=== PATIENT | male | born 1955 | race African-American/Black ===

== ENCOUNTER 2017-01-29 10:16 | Emergency (ER) | payer OTHER ==
[2017-01-29 10:25] VITALS: BP 166/107
--- NOTE | 2017-01-29 11:42 | ER Document Report ---
ED General - General Chief Complaint: Leg Pain Stated Complaint: LEFT SIDE SHOULDER,LEG PAIN Time Seen by Provider: 01/29/17 11:19 Mode of Arrival: Ambulatory Information source: Patient Notes: 61-year-old male presents to ED for pain in his left lower back and down his left leg about a month progressively getting worse. States he is having difficulty sitting upright due to the pain. States he went to the PA last month and forgot to tell them that he had this new pain. He also has abscess to the posterior left upper back just medial to his shoulder which is causing him pain to his left shoulder and neck. He states it has been there for 2-3 week. He states he did not tell the PA doctor about this either when he was saw him last. This patient has a previous history of a stroke in the left side in 2011 high blood pressure high cholesterol. TRAVEL OUTSIDE OF THE [place] IN LAST 30 DAYS: No - HPI Onset: Other - A month or more Onset/Duration: Gradual, Persistent Quality of pain: Achy, Sharp, Throbbing Severity: Severe Pain Level: 5 Associated symptoms: Other - Left shoulder neck and arm pain left lower back and hip pain abscess to the left upper back just below the shoulder Exacerbated by: Sitting, Movement, Walking Relieved by: Denies Similar symptoms previously: Yes Recently seen / treated by doctor: Yes - Related Data Allergies/Adverse Reactions: No Known Allergies Allergy (Verified 01/29/17 10:22) Past Medical History - General Information source: Patient - Social History Smoking Status: Current Every Day Smoker Cigarette use (# per day): Yes - Smokes 2-3 cigars a day Chew tobacco use (# tins/day): No Smoking Education Provided: Yes - Less than 2 minutes Frequency of alcohol use: None Drug Abuse: None Occupation: None Lives with: Alone Family History: Arthritis, DM, Hyperlipidemia, Hypertension. denies: CAD, COPD , CVA, Malignancy, Thyroid Disfunction Patient has suicidal ideation: No Patient has homicidal ideation: No - Past Medical History Cardiac Medical History: Reports: Hx Hypercholesterolemia, Hx Hypertension Pulmonary Medical History: Reports: None Neurological Medical History: Reports: Hx Cerebrovascular Accident - 2012, Hx Seizures - childhood Renal/ Medical History: Reports: None Malignancy Medical History: Reports None GI Medical History: Reports: None Musculoskeltal Medical History: Reports Hx Arthritis, Reports Hx Muscle Weakness - Left Skin Medical History: Reports None Psychiatric Medical History: Reports: None Traumatic Medical History: Reports: None Infectious Medical History: Reports: None Surgical Hx: Negative Past Surgical History: Reports: None - Immunizations Hx Diphtheria, Pertussis, Tetanus Vaccination: Yes Review of Systems - Review of Systems Constitutional: No symptoms reported EENT: No symptoms reported Cardiovascular: No symptoms reported Respiratory: No symptoms reported Gastrointestinal: No symptoms reported Genitourinary: No symptoms reported Male Genitourinary: No symptoms reported Musculoskeletal: Back pain, Joint pain - Hip, Muscle pain, Other - Left shoulder and left side of neck pain due to abscess just below the left shoulder and upper back Skin: Other - Abscess left upper back Hematologic/Lymphatic: No symptoms reported Neurological/Psychological: No symptoms reported Physical Exam - Vital signs Vitals: Temp Pulse Resp BP Pulse Ox 98.3 F 73 20 166/107 H 99 01/29/17 10:23 01/29/17 10:23 01/29/17 10:23 01/29/17 10:23 01/29/17 10:23 Interpretation: Normal - General General appearance: Appears well, Alert - HEENT Head: Normocephalic, Atraumatic Eyes: Normal Pupils: PERRL - Respiratory Respiratory status: No respiratory distress Chest status: Nontender Breath sounds: Normal Chest palpation: Normal - Cardiovascular Rhythm: Regular Heart sounds: Normal auscultation Murmur: No - Abdominal Inspection: Normal Distension: No distension Bowel sounds: Normal Tenderness: Nontender Organomegaly: No organomegaly - Back Back: Normal, Tender - Left side or back. No: Deformity/step-off, CVA tenderness, Vertebra tenderness, Scars, Scoliosis, Wounds - Extremities General upper extremity: Normal inspection, Nontender, Normal color, Normal ROM , Normal temperature General lower extremity: Normal inspection, Normal color, Normal temperature, Normal weight bearing. No: Randi's sign Thigh: Tender. No: Dislocation - Neurological Neuro grossly intact: Yes Cognition: Normal Orientation: AAOx4 Bijan Coma Scale Eye Opening: Spontaneous Bijan Coma Scale Verbal: Oriented Dickey Coma Scale Motor: Obeys Commands Bijan Coma Scale Total: 15 Speech: Normal Motor strength normal: LUE, RUE, LLE, RLE Sensory: Normal - Psychological Associated symptoms: Normal affect, Normal mood - Skin Skin Temperature: Warm Skin Moisture: Dry Skin Color: Normal Skin irregularity: Abscess - Left upper back just below the left shoulder Course - Re-evaluation Re-evalutation: 01/29/17 13:59 Discussed x-rays with Dr. Frazier and patient. [facility]. He was also treated for an abscess to the upper left back which was I&D. Patient started on Bactrim and Keflex as well as given a [place] dispense pack for his discomfort. Patient to follow-up with PA concern is abscess and his blood pressure. - Vital Signs Vital signs: Temp Pulse Resp BP Pulse Ox 98.3 F 73 20 166/107 H 99 01/29/17 10:23 01/29/17 10:23 01/29/17 10:23 01/29/17 10:23 01/29/17 10:23 - Diagnostic Test Radiology reviewed: Image reviewed, Reports reviewed Procedures - Incision and Drainage Left Upper Back Type: Simple Anesthetic type: 1% Lidocaine mL's of anesthetic: 5 Blade size: 11 I&D procedure: Sterile dressing applied, Other - surgical scrub Incision Method: Incision made by scalpel Amount/type of drainage: Large amount of purulent drainage Discharge - Discharge Clinical Impression: abscess left upper back Degenerative disc disease Qualifiers: Spinal region: lumbar Qualified Code(s): M51.36 - Other intervertebral disc degeneration, lumbar region Low back pain Qualifiers: Chronicity: chronic Back pain laterality: left Sciatica presence: with sciatica Sciatica laterality: sciatica of left side Qualified Code(s): M54.42 - Lumbago with sciatica, left side; G89.29 - Other chronic pain Condition: Stable Disposition: HOME, SELF-CARE Additional Instructions: LOW BACK PAIN: Three out of every four people will have an episode of disabling back pain during their lifetime. Most commonly the pain is due to straining of the muscles and ligaments in the low back. Usual treatment includes: (1) Rest on a firm surface. Avoid lying on your stomach. (2) Ice pack the painful area. After a few days, gentle heat may be used intermittently to relax the area, or ice packs can be continued. (3) Medication may be needed -- muscle relaxers and antiinflammatory medicines are commonly used. (4) As the back improves, exercises are prescribed to strengthen the back and abdominal muscles. Your doctor will advise you on the proper care for your back at each stage in your recovery. You may be better in a few days -- or healing may take several weeks. If new symptoms of a "herniated disc" (radiation of pain, numbness, or tingling down the back of the leg or weakness in the leg) occur, you should be re-examined. Further testing may be necessary. CELLULITIS: You have an infection of your skin and underlying soft tissues called cellulitis. This is due to bacteria, which can enter through any break in the skin, or even through an irritated hair follicle. Untreated, cellulitis will usually worsen. Antibiotics are required. Usually, warm packs or warm soaks, and elevation of the infected area are recommended. You should start getting better within 24 to 36 hours. Most infections respond quickly to the right medication. Follow-up care is important, however, to check for abscess (boil) formation, unsuspected foreign body, or resistant infection. If you develop fever, chills, or if the area of infection is becoming rapidly more swollen or painful, call the doctor at once. Cephalexin The antibiotic you've been prescribed is a member of the cephalosporin class. This type of antibiotic covers a wide variety of infections, including those of the skin, lungs, and urinary tract. It's useful for staph infections. This antibiotic is slightly similar to the penicillin family. In rare cases , a person who is allergic to penicillin will also be allergic to this medication. If you have had a severe allergic reaction to penicillin, and have not taken this antibiotic since that time, notify your doctor. Antibiotics which cover many germs ("broad spectrum" antibiotics) are more likely to cause diarrhea or "yeast" infections. Women prone to vaginal yeast problems may suffer an attack after taking this antibiotic. In infants, oral thrush (white spots "stuck" on the cheek) or yeast diaper rash may result. See your doctor if these problems occur. Call at once if you develop itching, hives , shortness of breath, or lightheadedness. TRIMETHOPRIM-SULFA: You have been given a prescription for trimethoprim-sulfa (TMS, Septra, Bactrim). This is a combination antibiotic of the sulfa class, often used for urinary tract infections, middle ear infections, bronchitis, shigella intestinal infection, and Pneumocystis pneumonia. TMS is usually well-tolerated. Occasional side effects include nausea and decreased appetite. Septra is not recommended for infants less than two months of age. Do not take this medication if you have experienced severe side effects or allergy to sulfa medicine. You should stop this medicine at once and contact your physician if you develop any rash, joint pain, shortness of breath, bruising, or jaundice ( yellow color in the skin), or if you develop any other new or unusual symptoms. ORAL NARCOTIC MEDICATION: You have been given a prescription for pain control. This medication is a narcotic. It's best taken with food, as nausea can result if taken on an empty stomach. Don't operate machinery or drive within six hours of taking this medication. Do not combine this medicine with alcohol, or with any medication which can cause sedation (such as cold tablets or sleeping pills) unless you get permission from the physician. Narcotics tend to cause constipation. If possible, drink plenty of fluids and eat a diet high in fiber and fruits. Please be aware that prescription narcotics also have the potential for abuse. People become addicted to these medications because of the general sense of wellbeing that they induce. This feeling along with a significant reduction in tension, anxiety, and aggression provides a stimulating seductive quality to these drugs. Once your pain is under control, we encourage you to discard your unused narcotics. ICE PACKS: Apply ice packs frequently against the painful area. Many different schedules are recommended, such as "20 minutes on, 20 minutes off" or "one hour ice, two hours rest." If you need to work, you may need to go longer between ice treatments. You should plan to have the area ice packed AT LEAST one fourth of the time. The ice should be applied over the wrap, tape, or splint, or over a layer of cloth -- not directly against the skin. Some ice bags have a built-in cloth and can be put directly on the skin. WARM PACKS: After approximately two days, apply gentle heat (such as a heating pad or hot water bottle) for about 20 to 30 minutes about every two hours -- at least four times daily. Warmth and elevation will help you make a more rapid recovery , and will ease the pain considerably. Do not use HOT heat, and never apply heat for longer than 30 minutes. The continuous heat can invisibly damage skin and muscles -- even when no burn is seen on the surface. Damaged muscles can make you MORE sore. FOLLOW-UP CARE: If you have been referred to a physician for follow-up care, call the physician s office for an appointment as you were instructed or within the next two days. If you experience worsening or a significant change in your symptoms, notify the physician immediately or return to the Emergency Department at any time for re-evaluation. Please [facility] today to follow-up your chronic back pain, blood pressure, and your abscess. Prescriptions: Cephalexin Monohydrate [Keflex 500 mg Capsule] 500 mg PO QID #20 capsule Sulfamethoxazole/Trimethoprim [Septra-Ds 800-160 mg Tablet] 1 tab PO BID #14 tablet Forms: Elevated Blood Pressure, Smoking Cessation Education
--- NOTE | 2017-01-29 12:37 | RADIOLOGY REPORT (SQ) ---
EXAM DESCRIPTION: L SPINE WHOLE COMPLETED DATE/TIME: 01/29/2017 12:21 pm REASON FOR STUDY: pain left hip and back COMPARISON: None. NUMBER OF VIEWS: Five views including obliques. TECHNIQUE: AP, lateral, oblique, and sacral radiographic images acquired of the lumbar spine. LIMITATIONS: None. FINDINGS: MINERALIZATION: Normal. SEGMENTATION: L5 may represent a transitional vertebra. There is sacralization of L5. ALIGNMENT: There is grade 1 anterolisthesis of L4 on L5. VERTEBRAE: Maintained height. No fracture or worrisome bone lesion. DISCS: There is narrowing of the L4-5 and L5-S1 disc spaces. POSTERIOR ELEMENTS: Pedicles and facets are intact. No pars defect or posterior arch defects. Hyper trophic facet joints are present at L4-5 and L5-S1. HARDWARE: None in the spine. PARASPINAL SOFT TISSUES: Normal. PELVIS: Intact as visualized. No fractures or worrisome bone lesions. SI joints intact. OTHER: No other significant finding. IMPRESSION: 1. 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 2. There is grade 1 anterolisthesis of L4 on L5. 3. There are degenerative disc changes and facet arthropathy as described. TECHNICAL DOCUMENTATION: JOB ID: [id number] [employer]- All Rights Reserved
--- NOTE | 2017-01-29 12:38 | RADIOLOGY REPORT (SQ) ---
EXAM DESCRIPTION: HIP LEFT AP/LATERAL COMPLETED DATE/TIME: 01/29/2017 12:21 pm REASON FOR STUDY: pain left hip and back COMPARISON: None. NUMBER OF VIEWS: Two views. TECHNIQUE: AP pelvis and additional frog-leg view of the left hip. LIMITATIONS: None. FINDINGS: MINERALIZATION: Normal. LEFT HIP: No fracture or dislocation. No worrisome bone lesions. RIGHT HIP: No fracture or dislocation. No worrisome bone lesions. PUBIS AND ISCHIUM: No fracture. PELVIS: No fracture. SACRUM: No fracture or dislocation. No worrisome bone lesions. LOWER LUMBAR SPINE: Degenerative changes see the report for the lumbar spine series. SOFT TISSUES: No findings. OTHER: No other significant finding. IMPRESSION: Normal hip with lumbar degenerative changes. TECHNICAL DOCUMENTATION: JOB ID: [id number] [employer]- All Rights Reserved
[2017-01-29] MEDS ORDERED: HYDROCODONE/ACETAMINOPHEN 5-325 MG 6 TAB/DSPK PO PRN (13:20)
[2017-01-29] MEDS ORDERED: CEPHALEXIN 500 MG CAPSULE PO ONE (13:20)
[2017-01-29] MEDS ORDERED: SULFAMETHOXAZOLE/TRIMETHOPRIM 800-160 MG TABLET PO ONE (13:20)
== END 2017-01-29 14:25 | disposition home or self-care (01) ==
LOC: ER 10:16
PROC: 0H96XZZ Drainage of Back Skin, External Approach (ICD-10-PCS; principal; 2017-01-29)
DX: M51.16 Intervertebral disc disorders with radiculopathy, lumbar region (principal); L02.212 Cutaneous abscess of back [any part, except buttock and flank]; I10 Essential (primary) hypertension; F17.210 Nicotine dependence, cigarettes, uncomplicated; Z71.6 Tobacco abuse counseling; Z86.73 Personal history of transient ischemic attack (TIA), and cerebral infarction without residual deficits
CPT/HCPCS: 72110; 87070; 87075; 87077; 87205; 99284

== ENCOUNTER 2017-02-17 13:12 | Emergency (ER) | payer OTHER ==
--- NOTE | 2017-02-17 14:21 | ER Document Report ---
ED General - General Chief Complaint: Foot Injury Stated Complaint: FOOT INJURY Notes: P1-year-old man with multiple comorbidities and a left-sided stroke presents with pain on the dorsum of his left foot for 3 weeks since he slammed the door, worse with walking, radiating up his leg initially associated with swelling which is now resolved. He is taking nothing for the pain. TRAVEL OUTSIDE OF THE [place] IN LAST 30 DAYS: No - Related Data Allergies/Adverse Reactions: No Known Allergies Allergy (Verified 02/17/17 13:34) Past Medical History - General Information source: Patient - Reviewed - Social History Smoking Status: Former Smoker Family History: Arthritis, DM, Hyperlipidemia, Hypertension. denies: CAD, COPD , CVA, Malignancy, Thyroid Disfunction Patient has suicidal ideation: No Patient has homicidal ideation: No - Past Medical History Cardiac Medical History: Reports: Hx Hypercholesterolemia, Hx Hypertension Neurological Medical History: Reports: Hx Cerebrovascular Accident - 2012, Hx Seizures - childhood Renal/ Medical History: Denies: Hx Peritoneal Dialysis Musculoskeltal Medical History: Reports Hx Arthritis, Reports Hx Muscle Weakness - Left - Immunizations Hx Diphtheria, Pertussis, Tetanus Vaccination: Yes Review of Systems - Review of Systems Notes: REVIEW OF SYSTEMS GEN: Denies fever, chills, weight loss ENT: Denies sore throat, nasal discharge, ear pain EYES: Denies blurry vision, eye pain, discharge CV: Denies chest pain, palpitations, edema RESP: Denies cough, shortness of breath, wheezing GI: Denies abdominal pain, nausea, vomiting, diarrhea MSK: Denies joint pain/swelling, edema, dorsal foot pain SKIN: Denies rash, skin lesions LYMPH: Denies swollen glands/lymph nodes NEURO: D old stroke left-sided weakness PSYCH: Denies depression, suicidal or homicidal ideation PHYSICAL EXAMINATION General: No acute distress, well-nourished Head: Atraumatic, normocephalic ENT: Mouth normal, oropharynx moist, no exudates or tonsillar enlargement Eyes: Conjunctiva normal, pupils equal, lids normal Neck: No JVD, supple, no guarding CVS: Normal rate, regular rhythm, no murmurs Resp: No resp distress, equal and normal breath sounds bilaterally GI: Nondistended, soft, no tenderness to palpation, no rebound or guarding Ext: No deformities, no edema, normal range of motion in upper and lower ext. No swelling or ecchymosis of the foot with mild dorsal foot tenderness. Back: No CVA or midline TTP Skin: No rash, warm Lymphatic: No lymphadeopathy noted Neuro: Awake, alert. Face symmetric. GCS 15. Left-sided contractures and muscle wasting upper greater than lower extremity. Physical Exam - Vital signs Vitals: Temp Pulse Resp BP Pulse Ox 98.4 F 70 18 141/92 H 100 02/17/17 13:34 02/17/17 13:34 02/17/17 13:34 02/17/17 13:34 02/17/17 13:34 Course - Re-evaluation Re-evalutation: 02/17/17 14:20 Subacute foot pain after slamming a door. No apparent injury. Given patient's a diabetic with a stroke I will x-ray his foot to rule out fracture in a patient with abnormal sensorium. He will then be given anti-inflammatory medication and discharged home. - Vital Signs Vital signs: Temp Pulse Resp BP Pulse Ox 98.4 F 70 18 141/92 H 100 02/17/17 13:34 02/17/17 13:34 02/17/17 13:34 02/17/17 13:34 02/17/17 13:34 - Diagnostic Test Radiology reviewed: Pending, Image reviewed, Reports reviewed Discharge - Discharge Clinical Impression: Contusion of left foot Qualifiers: Encounter type: initial encounter Qualified Code(s): S90.32XA - Contusion of left foot, initial encounter Condition: Good Instructions: Contusion ([facility]) Prescriptions: Ibuprofen [Motrin 600 Mg Tablet] 600 mg PO TID #15 tablet
--- NOTE | 2017-02-17 14:46 | RADIOLOGY REPORT (SQ) ---
EXAM DESCRIPTION: FOOT LEFT COMPLETE COMPLETED DATE/TIME: 02/17/2017 2:35 pm REASON FOR STUDY: foot inj slammed in door COMPARISON: 2011. NUMBER OF VIEWS: Three views left foot. LIMITATIONS: None. FINDINGS: There is no acute or significant bone, joint or soft tissue abnormality. OTHER: Osteopenic. IMPRESSION: No fracture appreciated. TECHNICAL DOCUMENTATION: JOB ID: [id number]
[2017-02-17 15:37] VITALS: BP 153/86
== END 2017-02-17 15:36 | disposition home or self-care (01) ==
LOC: ER 13:12
DX: S90.32XA Contusion of left foot, initial encounter (principal); W23.0XXA Caught, crushed, jammed, or pinched between moving objects, initial encounter; E11.9 Type 2 diabetes mellitus without complications; I69.354 Hemiplegia and hemiparesis following cerebral infarction affecting left non-dominant side; I10 Essential (primary) hypertension
CPT/HCPCS: 99283

== ENCOUNTER 2017-02-23 11:47 | Emergency (ER) | payer MEDICARE, OTHER ==
[2017-02-23] MEDS ORDERED: KETOROLAC TROMETHAMINE 60 MG/2 ML SDV IM ONE (12:39)
--- NOTE | 2017-02-23 12:53 | ER Document Report ---
ED General - General Chief Complaint: Knee Pain Stated Complaint: KNOT ON LEFT KNEE Time Seen by Provider: 02/23/17 12:38 Mode of Arrival: Ambulatory Information source: Patient Notes: 61-year-old male presents with complaints of left knee pain and swelling. Patient denies any trauma, notes the swelling has worsened over the past few weeks. Patient denies any previous knee abnormalities, denies any fevers or chills TRAVEL OUTSIDE OF THE [place] IN LAST 30 DAYS: No - HPI Onset: Other - 2 weeks Onset/Duration: Persistent Quality of pain: Achy Severity: Mild Pain Level: 1 Associated symptoms: Body/muscle aches Exacerbated by: Movement, Walking Relieved by: Denies Similar symptoms previously: No Recently seen / treated by doctor: No - Related Data Allergies/Adverse Reactions: No Known Allergies Allergy (Verified 02/23/17 11:52) Past Medical History - Social History Smoking Status: Current Some Day Smoker Cigarette use (# per day): Yes Chew tobacco use (# tins/day): No Smoking Education Provided: No Frequency of alcohol use: None Drug Abuse: None Family History: Arthritis, DM, Hyperlipidemia, Hypertension. denies: CAD, COPD , CVA, Malignancy, Thyroid Disfunction - Past Medical History Cardiac Medical History: Reports: Hx Hypercholesterolemia, Hx Hypertension Neurological Medical History: Reports: Hx Cerebrovascular Accident - 2012, Hx Seizures - childhood Renal/ Medical History: Denies: Hx Peritoneal Dialysis Musculoskeltal Medical History: Reports Hx Arthritis, Reports Hx Muscle Weakness - Left - Immunizations Hx Diphtheria, Pertussis, Tetanus Vaccination: Yes Review of Systems - Review of Systems Notes: REVIEW OF SYSTEMS: CONSTITUTIONAL : Denies fever, chills, or sweats. Denies recent illness. EENT: Denies eye, ear, throat, or mouth pain or symptoms. Denies nasal or sinus congestion or discharge. Denies throat, tongue, or mouth swelling or difficulty swallowing. CARDIOVASCULAR: Denies chest pain. Denies palpitations or racing or irregular heart beat. Denies ankle edema. RESPIRATORY: Denies cough, cold, or chest congestion. Denies shortness of breath, difficulty breathing, or wheezing. GASTROINTESTINAL: Denies abdominal pain or distention. Denies nausea, vomiting , or diarrhea. Denies blood in vomitus, stools, or per rectum. Denies black, tarry stools. Denies constipation. GENITOURINARY: Denies difficulty urinating, painful urination, burning, frequency, blood in urine, or discharge. MUSCULOSKELETAL: Admits to left knee pain swelling SKIN: Denies rash, lesions or sores. HEMATOLOGIC : Denies easy bruising or bleeding. LYMPHATIC: Denies swollen, enlarged glands. NEUROLOGICAL: Denies confusion or altered mental status. Denies passing out or loss of consciousness. Denies dizziness or lightheadedness. Denies headache. Denies weakness or paralysis or loss of use of either side. Denies problems with gait or speech. Denies sensory loss, numbness, or tingling. Denies seizures. PSYCHIATRIC: Denies anxiety or stress. Denies depression, suicidal ideation, or homicidal ideation. ALL OTHER SYSTEMS REVIEWED AND NEGATIVE. Dictation was performed using [employer] voice recognition software PHYSICAL EXAMINATION: GENERAL: Well-appearing, well-nourished and in no acute distress. HEAD: Atraumatic, normocephalic. EYES: Pupils equal round and reactive to light, extraocular movements intact, sclera anicteric, conjunctiva are normal. ENT: Nares patent, oropharynx clear without exudates. Moist mucous membranes. NECK: Normal range of motion, supple without lymphadenopathy LUNGS: Breath sounds clear to auscultation bilaterally and equal. No wheezes rales or rhonchi. HEART: Regular rate and rhythm without murmurs ABDOMEN: Soft, nontender, nondistended abdomen. No guarding, no rebound. No masses appreciated. Musculoskeletal: left knee mild effusion noted, no bony tenderness NEUROLOGICAL: Cranial nerves grossly intact. Normal speech, normal gait. Normal sensory, motor exams PSYCH: Normal mood, normal affect. SKIN: Warm, Dry, normal turgor, no rashes or lesions noted. Physical Exam - Vital signs Vitals: Temp Pulse Resp BP Pulse Ox 98.5 F 65 16 174/92 H 100 02/23/17 11:53 02/23/17 11:53 02/23/17 11:53 02/23/17 11:53 02/23/17 11:53 Course - Re-evaluation Re-evalutation: 02/23/17 12:53 Patient will be given Jose wrap anti-inflammatories and follow-up with orthopedics otherwise looks well is in no distress I did offer the patient aspiration of the knee, explained risks and benefits and he wishes to defer at this time After performing a Medical Screening Examination, I estimate there is LOW risk for INTRACRANIAL HEMORRHAGE, UNSTABLE SPINE FRACTURE, CENTRAL CORD SYNDROME, CAUDA EQUINA, THORACIC AORTIC DISSECTION, PNEUMOTHORAX, PERFORATED BOWEL, RUPTURED ABDOMINAL AORTIC ANEURYSM, ACUTE TENDON RUPTURE, COMPARTMENT SYNDROME, or OPEN FRACTURE, thus I consider the discharge disposition reasonable. Also, there is no evidence or peritonitis, sepsis, or toxicity. I have reevaluated this patient multiple times and no significant life threatening changes are noted. The patient and I have discussed the diagnosis and risks, and we agree with discharging home to follow-up with their primary doctor with the understanding that symptoms and presentations can change. We also discussed returning to the Emergency Department immediately if new or worsening symptoms occur. We have discussed the symptoms which are most concerning (e.g., bloody stool, fever, changing or worsening pain, vomiting) that necessitate immediate return. - Vital Signs Vital signs: Temp Pulse Resp BP Pulse Ox 98.5 F 65 16 174/92 H 100 02/23/17 11:53 02/23/17 11:53 02/23/17 11:53 02/23/17 11:53 02/23/17 11:53 Discharge - Discharge Clinical Impression: Effusion, left knee Left knee pain Qualifiers: Chronicity: acute Qualified Code(s): M25.562 - Pain in left knee Hypertension Qualifiers: Hypertension type: essential hypertension Qualified Code(s): I10 - Essential ( primary) hypertension Condition: Stable Disposition: HOME, SELF-CARE Instructions: Suspected Internal Knee Injury ([facility]) Prescriptions: Naproxen 500 mg PO BID #20 tablet Referrals: CLAUDIO ACEVEDO MD [ACTIVE STAFF] - Follow up in 1 week
[2017-02-23 13:14] VITALS: BP 185/101
== END 2017-02-23 13:23 | disposition home or self-care (01) ==
LOC: ER 11:47
DX: M25.462 Effusion, left knee (principal); M25.562 Pain in left knee; I10 Essential (primary) hypertension; M79.1 Myalgia; F17.210 Nicotine dependence, cigarettes, uncomplicated; E78.00 Pure hypercholesterolemia, unspecified; Z86.73 Personal history of transient ischemic attack (TIA), and cerebral infarction without residual deficits
CPT/HCPCS: 99283; 96372; J1885

== ENCOUNTER 2017-03-02 10:18 | Emergency (ER) | payer MEDICARE ==
[2017-03-02 10:26] VITALS: BP 161/96
[2017-03-02] MEDS ORDERED: KETOROLAC TROMETHAMINE 60 MG/2 ML SDV IM ONE (10:51)
--- NOTE | 2017-03-02 10:54 | ER Document Report ---
HPI - HPI Patient complains to provider of: left knee pain Onset: Other Onset/Duration: Gradual Quality of pain: Throbbing Severity: Severe Pain Level: 5 Context: Patient states he has been having left knee pain for almost 1 month. States he had some fluid in his knee and was seen here several days ago and nothing was done for him. The pain medication they gave him is not helping. He did not call Dr. Daigle's office for follow-up as instructed. Associated Symptoms: None Exacerbated by: Movement, Walking Relieved by: Denies Similar symptoms previously: Yes Recently seen / treated by doctor: Yes - ROS ROS below otherwise negative: Yes Systems Reviewed and Negative: Yes All other systems reviewed and negative - CONSTITUTIONAL Constitutional: DENIES: Fever - EENT EENT: DENIES: Congestion - NEURO Neurology: DENIES: Headache - CARDIOVASCULAR Cardiovascular: DENIES: Chest pain - RESPIRATORY Respiratory: DENIES: Trouble Breathing - GASTROINTESTINAL Gastrointestinal: DENIES: Abdominal Pain - MUSCULOSKELETAL Musculoskeletal: REPORTS: Extremity pain - left knee - DERM Skin Color: Normal Skin Problems: None Past Medical History - General Information source: Patient - Social History Smoking Status: Current Every Day Smoker Cigarette use (# per day): Yes Frequency of alcohol use: None Drug Abuse: None Lives with: Family Family History: Arthritis, DM, Hyperlipidemia, Hypertension - Past Medical History Cardiac Medical History: Reports: Hx Hypercholesterolemia, Hx Hypertension Neurological Medical History: Reports: Hx Cerebrovascular Accident - 2012, Hx Seizures - childhood Renal/ Medical History: Denies: Hx Peritoneal Dialysis Musculoskeltal Medical History: Reports Hx Arthritis, Reports Hx Muscle Weakness - Left Surgical Hx: Negative - Immunizations Hx Diphtheria, Pertussis, Tetanus Vaccination: Yes Vertical Provider Document - CONSTITUTIONAL Agree With Documented VS: Yes Exam Limitations: No Limitations General Appearance: WD/WN, No Apparent Distress - INFECTION CONTROL TRAVEL OUTSIDE OF THE [place] IN LAST 30 DAYS: No - HEENT HEENT: Atraumatic, Normocephalic - RESPIRATORY Respiratory: Breath Sounds Normal, No Respiratory Distress O2 Sat by Pulse Oximetry: 99 - CARDIOVASCULAR Cardiovascular: Regular Rate, Regular Rhythm - GI/ABDOMEN Gastrointestinal: Abdomen Soft - MUSCULOSKELETAL/EXTREMETIES Musculoskeletal/Extremeties: MAEW, Tender, No Edema - left knee - NEURO Level of Consciousness: Awake, Alert, Appropriate - DERM Integumentary: Warm, Dry Course - Re-evaluation Re-evalutation: 03/02/17 11:48 X-ray showed no acute abnormality, but there is subperiosteal new bone in the proximal fibula. Patient denies history of fracture. Patient is instructed to follow-up with Dr. Daigle for further evaluation of knee pain and x-ray results. 03/02/17 11:51 Patient states some relief of pain after the Toradol injection - Vital Signs Vital signs: Temp Pulse Resp BP Pulse Ox 98.9 F 62 18 161/96 H 99 03/02/17 10:22 03/02/17 10:22 03/02/17 10:22 03/02/17 10:22 03/02/17 10:22 Discharge - Discharge Clinical Impression: Left knee pain Qualifiers: Chronicity: acute Qualified Code(s): M25.562 - Pain in left knee Condition: Good Disposition: HOME, SELF-CARE Additional Instructions: Meds as prescribed Ice packs continue using your cane for walking. Call Dr. Daigle's office for follow-up appointment, he will be able to look at your x-rays from his office. Return as needed Prescriptions: Ketorolac Tromethamine [Toradol 10 mg Tablet] 10 mg PO Q6HP PRN #20 tablet PRN Reason: Referrals: CLAUDIO ACEVEDO MD [ACTIVE STAFF] - Follow up as needed
--- NOTE | 2017-03-02 11:21 | RADIOLOGY REPORT (SQ) ---
EXAM DESCRIPTION: KNEE LEFT 4 VIEW COMPLETED DATE/TIME: 03/02/2017 11:07 am REASON FOR STUDY: pain COMPARISON: None. NUMBER OF VIEWS: Four views. TECHNIQUE: AP, lateral, and both oblique radiographic images acquired of the left knee. LIMITATIONS: None. FINDINGS: MINERALIZATION: Osteopenia BONES: There is subperiosteal new bone in the proximal fibula. No acute fracture or dislocation is p resent. JOINT: No effusion. SOFT TISSUES: No soft tissue swelling. No radio-opaque foreign body. OTHER: No other significant finding. IMPRESSION: 1. There is no acute abnormality. 2. There is subperiosteal new bone in the proximal fibula. Is there history of fracture? Consider MRI for further evaluation if clinically indicated. TECHNICAL DOCUMENTATION: JOB ID: [id number] [employer]- All Rights Reserved
== END 2017-03-02 12:15 | disposition home or self-care (01) ==
LOC: ER 10:18
DX: M25.562 Pain in left knee (principal); F17.210 Nicotine dependence, cigarettes, uncomplicated; I10 Essential (primary) hypertension
CPT/HCPCS: 99283; 96372; 73562; J1885

== ENCOUNTER 2017-03-04 11:14 | Emergency (ER) | payer MEDICARE ==
[2017-03-04 11:20] VITALS: BP 180/61
--- NOTE | 2017-03-04 11:45 | ER Document Report ---
ED Extremity Problem, Lower - General Chief Complaint: Leg Pain Stated Complaint: LEFT LEG PAIN Time Seen by Provider: 03/04/17 11:31 Notes: Patient is a 61-year-old male who returns emergency department complaining of left knee pain. Patient states that he has had this pain for approximately 1 month. States he has been seen multiple times with department he states he has had nothing done for him. Patient states that he received Toradol last time and that helped with his pain otherwise he states he is due to follow-up with Dr. Daigle on . He denies any new trauma or fall. Pain described as aching pain with radiation down the front of his leg Review of his previous medical records showed that he has been offered a joint aspiration for the fluid in his knee but he declined. Otherwise he has had multiple imaging of his extremities without any evidence of acute fracture. Does show evidence of subperiosteal new bone in the proximal fibula. Patient denies history of fracture. Patient states that Last time he had anything for pain with his Toradol injection 2 days ago. Patient states that he has not been taking any [id number] medications nor did he fill the prescription that he received here previously. PMH; stroke with residual LUE weakness, HTN. PCP: Dr Toledo at the [facility] TRAVEL OUTSIDE OF THE [place] IN LAST 30 DAYS: No - Related Data Allergies/Adverse Reactions: No Known Allergies Allergy (Verified 03/04/17 11:19) Past Medical History - Social History Smoking Status: Unknown if Ever Smoked Family History: Arthritis, DM, Hyperlipidemia, Hypertension - Past Medical History Cardiac Medical History: Reports: Hx Hypercholesterolemia, Hx Hypertension Neurological Medical History: Reports: Hx Cerebrovascular Accident - 2012, Hx Seizures - childhood Renal/ Medical History: Denies: Hx Peritoneal Dialysis Musculoskeltal Medical History: Reports Hx Arthritis, Reports Hx Muscle Weakness - Left - Immunizations Hx Diphtheria, Pertussis, Tetanus Vaccination: Yes Review of Systems - Review of Systems Constitutional: No symptoms reported Musculoskeletal: See HPI Skin: No symptoms reported Neurological/Psychological: No symptoms reported -: Yes All other systems reviewed and negative Physical Exam - Vital signs Vitals: Temp Pulse Resp BP Pulse Ox 98.5 F 63 16 180/61 H 98 03/04/17 11:18 03/04/17 11:18 03/04/17 11:18 03/04/17 11:18 03/04/17 11:18 - General General appearance: Appears well, Alert In distress: None - Cardiovascular Pulses: Normal: Femoral, Popliteal, Dorsalis pedis Normal capillary refill: Yes - Extremities Hip: Normal, Nontender. No: Pain with ROM, Unable to bear weight Thigh: Normal, Nontender. No: Unable to bear weight Knee: Normal, Nontender, Pain with ROM. No: Deformity, Dislocation, Drawer's test instability, Joint effusion, Tender joint line, Unable to bear weight Calf: Normal, Nontender Ankle: Normal, Nontender. No: Edema Foot: Normal, Nontender. No: Abrasion, Deformity, Unable to bear weight - Neurological Neuro grossly intact: Yes Cognition: Normal Orientation: AAOx4 [place] Coma Scale Eye Opening: Spontaneous [place] Coma Scale Verbal: Oriented [place] Coma Scale Motor: Obeys Commands [place] Coma Scale Total: 15 Speech: Normal Motor strength normal: RUE, LLE, RLE - Skin Skin Temperature: Warm Skin Moisture: Dry Skin Color: Normal Skin Turgor: Elastic Course - Re-evaluation Re-evalutation: 03/04/17 13:09 Patient is a 61-year-old male who is hemodynamic stable, no acute distress and afebrile. Gait stable and able to bear weight without any difficulty. Patient has been seen multiple times for this chronic complaint. Patient educated on taking anti-inflammatories to help with his pain and to follow-up with Dr. Rosas on . Patient expressed understanding and agrees with plan. Given patient has no new injury or trauma no additional imaging was ordered. - Vital Signs Vital signs: Temp Pulse Resp BP Pulse Ox 98.5 F 63 16 180/61 H 98 03/04/17 11:18 03/04/17 11:18 03/04/17 11:18 03/04/17 11:18 03/04/17 11:18 Discharge - Discharge Clinical Impression: Left knee pain Qualifiers: Chronicity: acute Qualified Code(s): M25.562 - Pain in left knee Condition: Good Disposition: HOME, SELF-CARE Additional Instructions: Your complaint today is chronic and you will need to follow-up with Dr. Daigle in his office. Please use ice and heat as tolerated to help with your pain You can also buy capsaicin [id number] to help with your pain Please take your naproxen as prescribed. Prescriptions: Naproxen 500 mg PO BID #20 tablet Forms: Elevated Blood Pressure Referrals: CLAUDIO ACEVEDO MD [ACTIVE STAFF] - Follow up in 3-5 days
[2017-03-04] MEDS ORDERED: KETOROLAC TROMETHAMINE INJ/PF 30 MG/1 ML SDV IM ONE (11:46)
== END 2017-03-04 11:58 | disposition home or self-care (01) ==
LOC: ER 11:14
DX: M25.562 Pain in left knee (principal); I10 Essential (primary) hypertension
CPT/HCPCS: 99283; 96372; J1885

== ENCOUNTER 2017-08-16 13:46 | Emergency (ER) | payer MEDICARE ==
[2017-08-16] MEDS ORDERED: IBUPROFEN 600 MG TABLET PO ONE (15:50)
[2017-08-16] MEDS ORDERED: ACETAMINOPHEN 325 MG TABLET PO ONE (15:50)
--- NOTE | 2017-08-16 15:52 | ER Document Report ---
ED Medical Screen (RME) - General Chief Complaint: Fall Stated Complaint: FALL/LEFT SIDE PAIN Time Seen by Provider: 08/16/17 15:50 Notes: Pt is a 62 yo male who tripped down stairs and landed on his left leg. He is complaining of left wood and thigh pain. Did not hit his head. 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 PE: Tenderness over left distal upper leg and mid-wood. No signs of trauma. I have greeted and performed a rapid initial assessment of this patient. A comprehensive ED assessment and evaluation of the patient, analysis of test results and completion of the medical decision making process will be conducted by additional ED providers. TRAVEL OUTSIDE OF THE [place] IN LAST 30 DAYS: No - Related Data Allergies/Adverse Reactions: No Known Allergies Allergy (Verified 08/16/17 13:47) Past Medical History - Social History Frequency of alcohol use: None Drug Abuse: None - Past Medical History Cardiac Medical History: Reports: Hx Hypercholesterolemia, Hx Hypertension Neurological Medical History: Reports: Hx Cerebrovascular Accident - 2012, Hx Seizures - childhood Renal/ Medical History: Denies: Hx Peritoneal Dialysis Musculoskeltal Medical History: Reports Hx Arthritis, Reports Hx Muscle Weakness - Left - Immunizations Hx Diphtheria, Pertussis, Tetanus Vaccination: Yes Physical Exam - Vital signs Vitals: Temp Pulse Resp BP Pulse Ox 98.4 F 82 14 161/99 H 97 08/16/17 14:07 08/16/17 14:07 08/16/17 14:07 08/16/17 14:07 08/16/17 14:07 Course - Vital Signs Vital signs: Temp Pulse Resp BP Pulse Ox 98.4 F 82 14 161/99 H 97 08/16/17 14:07 08/16/17 14:07 08/16/17 14:07 08/16/17 14:07 08/16/17 14:07
--- NOTE | 2017-08-16 16:42 | RADIOLOGY REPORT (SQ) ---
EXAM DESCRIPTION: TIBIA FIBULA LEFT COMPLETED DATE/TIME: 08/16/2017 4:19 pm REASON FOR STUDY: fall, leg pain COMPARISON: None. NUMBER OF VIEWS: Two views. TECHNIQUE: Two radiographic images acquired of the left tibia and fibula to include the knee and ank le in at least one projection. LIMITATIONS: None. FINDINGS: MINERALIZATION: Normal. BONES: No acute fracture or dislocation. No worrisome bone lesions. SOFT TISSUES: No obvious swelling or foreign body. OTHER: No other significant finding. IMPRESSION: NEGATIVE STUDY OF THE LEFT TIBIA AND FIBULA. NO RADIOGRAPHIC EVIDENCE OF ACUTE INJURY. TECHNICAL DOCUMENTATION: JOB ID: [id number] [employer]- All Rights Reserved
--- NOTE | 2017-08-16 16:44 | RADIOLOGY REPORT (SQ) ---
EXAM DESCRIPTION: FEMUR LEFT COMPLETED DATE/TIME: 08/16/2017 4:19 pm REASON FOR STUDY: fall, leg pain COMPARISON: None. NUMBER OF VIEWS: Two views. TECHNIQUE: Two radiographic images acquired of the left femur to include hip and knee in at least on e projection. LIMITATIONS: None. FINDINGS: MINERALIZATION: Normal. BONES: No acute fracture. No worrisome bone lesions. SOFT TISSUES: No obvious swelling or foreign body. OTHER: Patellar spurring is identified. IMPRESSION: NEGATIVE STUDY OF THE LEFT FEMUR. NO RADIOGRAPHIC EVIDENCE OF ACUTE INJURY. TECHNICAL DOCUMENTATION: JOB ID: [id number] [employer]- All Rights Reserved
--- NOTE | 2017-08-16 18:15 | ER Document Report ---
ED Extremity Problem, Lower - General Chief Complaint: Fall Stated Complaint: FALL/LEFT SIDE PAIN Time Seen by Provider: 08/16/17 15:50 Mode of Arrival: Wheelchair Information source: Patient Notes: 62-year-old male presents to ED for complaint of left leg pain from his hip to his foot. He states he has had this pain off and on for [address] Daigle for this pain who has had him on meloxicam and sending him to physical therapy. He states he fell down some steps a couple days ago but this is not a new pain this is the same pain that he has had for 4 months. There is no bruises no signs of any acute injuries to this leg. TRAVEL OUTSIDE OF THE [place] IN LAST 30 DAYS: No - HPI Patient complains to provider of: Pain. No: Swelling Location: Leg, Thigh Occurred: Other - 4 months states he fell a couple days ago but the pain is no different than it has been for 4 months Where: Home, Indoors Quality of pain: Achy, Dull Severity: Severe Pain Level: 5 Context: Fell Recent injury: Possibly Associated symptoms: Painful ambulation Exacerbated by: Movement, Walking Relieved by: Nothing - Related Data Allergies/Adverse Reactions: No Known Allergies Allergy (Verified 08/16/17 13:47) Past Medical History - General Information source: Patient - Social History Smoking Status: Never Smoker Cigarette use (# per day): No Chew tobacco use (# tins/day): No Smoking Education Provided: No Frequency of alcohol use: None Drug Abuse: None Family History: Arthritis, DM, Hyperlipidemia, Hypertension Patient has suicidal ideation: No Patient has homicidal ideation: No - Past Medical History Cardiac Medical History: Reports: Hx Hypercholesterolemia, Hx Hypertension EENT Medical History: Reports: None Neurological Medical History: Reports: Hx Cerebrovascular Accident - 2012, Hx Seizures - childhood Endocrine Medical History: Reports: None Renal/ Medical History: Reports: None Malignancy Medical History: Reports None GI Medical History: Reports: None Musculoskeltal Medical History: Reports Hx Arthritis, Reports Hx Muscle Weakness - Left Skin Medical History: Reports None Psychiatric Medical History: Reports: None Traumatic Medical History: Reports: None Infectious Medical History: Reports: None Surgical Hx: Negative Past Surgical History: Reports: None - Immunizations Hx Diphtheria, Pertussis, Tetanus Vaccination: Yes Review of Systems - Review of Systems Constitutional: No symptoms reported EENT: No symptoms reported Cardiovascular: No symptoms reported Respiratory: No symptoms reported Gastrointestinal: No symptoms reported Genitourinary: No symptoms reported Male Genitourinary: No symptoms reported Musculoskeletal: Muscle pain, Other - left leg pain for 4 months no brusing states pain is the same as it has been for 4 months Skin: No symptoms reported Hematologic/Lymphatic: No symptoms reported Neurological/Psychological: Weakness - left leg and arm, Other - left leg pain chronic -: Yes All other systems reviewed and negative Physical Exam - Vital signs Vitals: Temp Pulse Resp BP Pulse Ox 98.4 F 82 14 161/99 H 97 08/16/17 14:07 08/16/17 14:07 08/16/17 14:07 08/16/17 14:07 08/16/17 14:07 Interpretation: Normal - General General appearance: Appears well, Alert - HEENT Head: Normocephalic, Atraumatic Eyes: Normal Pupils: PERRL - Respiratory Respiratory status: No respiratory distress Chest status: Nontender Breath sounds: Normal Chest palpation: Normal - Cardiovascular Rhythm: Regular Heart sounds: Normal auscultation Murmur: No - Abdominal Inspection: Normal Distension: No distension Bowel sounds: Normal Tenderness: Nontender Organomegaly: No organomegaly - Back Back: Normal, Nontender - Extremities General upper extremity: Normal inspection, Nontender, Normal color, Normal ROM , Normal temperature, Other - Left arm weakness due to previous stroke General lower extremity: Normal inspection, Normal color, Normal ROM, Normal temperature, Normal weight bearing, Other - Left leg weakness due to previous strokes. No: Randi's sign Thigh: Tender. No: Abrasion, Deformity, Dislocation, Ecchymosis, Instability, Laceration, Unable to bear weight Knee: Tender, Patellar tendon intact. No: Abrasion, Deformity, Dislocation, Drawer's test instability, Ecchymosis, Instability, Joint effusion, Laceration, Laxity with valgus stress, Laxity with varus stress, Pain with ROM, Popliteal fossa tender, Tender joint line, Unable to bear weight Calf: Tender. No: Abrasion, Deformity, Ecchymosis, Instability, Laceration, Unable to bear weight Ankle: Tender. No: Abrasion, Deformity, Ecchymosis, Edema, Instability, Laceration, Limited ROM, Positive Alonzo's test, Unable to bear weight Foot: No evidence of FB - Neurological Neuro grossly intact: Yes Cognition: Normal Orientation: AAOx4 [place] Coma Scale Eye Opening: Spontaneous [place] Coma Scale Verbal: Oriented [place] Coma Scale Motor: Obeys Commands [place] Coma Scale Total: 15 Speech: Normal Motor strength normal: LUE, RUE, LLE, RLE Sensory: Normal - Psychological Associated symptoms: Normal affect, Normal mood - Skin Skin Temperature: Warm Skin Moisture: Dry Skin Color: Normal Course - Re-evaluation Re-evalutation: 08/16/17 18:23 X-rays discussed with patient. Written reports of x-rays given the patient for follow-up with Dr. Daigle and his [facility]. Patient encouraged to continue taking his meloxicam as ordered and to continue his physical therapy as ordered. Warm compresses and ice compresses instructed to patient. - Vital Signs Vital signs: Temp Pulse Resp BP Pulse Ox 98.1 F 83 18 165/98 H 98 08/16/17 18:47 08/16/17 18:47 08/16/17 18:47 08/16/17 18:47 08/16/17 18:47 - Diagnostic Test Radiology reviewed: Image reviewed, Reports reviewed Discharge - Discharge Clinical Impression: Left leg pain, Fall (on) (from) other stairs and steps, initial encounter Condition: Stable Disposition: HOME, SELF-CARE Additional Instructions: Leg Pain, Nonspecific We did not find an obvious cause for your leg pain. There's no sign of blood clot, infection, or other serious disease. Possible causes of vague leg pain include muscle or joint inflammation, disc disease in the lower back, pressure on the nerves in the back, or reduced blood flow through the arteries of the leg. Rest the leg. Pain can be eased with an antiinflammatory pain medicine such as ibuprofen. If the pain involves a small area, a heating pad might help. Call the doctor or return if the leg becomes swollen, weak, discolored, or increasingly painful, or if you develop any other significant change in your health. Continue taking your meloxicam that has been prescribed to you by Dr. Daigle for your left leg pain. You states you have fallen down several times but you have not not hit or head and you continue to have pain in the left leg but it is the same pain you have been having for over 4 months. Your x-rays do not show any new acute injuries. A written report of the x-rays given to you for follow-up with your primary doctor and your orthopedic doctor. You state that Dr. Daigle is sending you to physical therapy and given you meloxicam for your chronic pain. Please follow-up with Dr. Daigle and your [facility] doctor or your continued pain. FOLLOW-UP CARE: If you have been referred to a physician for follow-up care, call the physician s office for an appointment as you were instructed or within the next two days. If you experience worsening or a significant change in your symptoms, notify the physician immediately or return to the Emergency Department at any time for re-evaluation. Forms: Elevated Blood Pressure Referrals: CLAUDIO ACEVEDO MD [ACTIVE STAFF] - Follow up as needed
[2017-08-16 18:56] VITALS: BP 165/98
== END 2017-08-16 18:56 | disposition home or self-care (01) ==
LOC: ER 13:46
DX: M79.605 Pain in left leg (principal); W10.9XXA Fall (on) (from) unspecified stairs and steps, initial encounter; E78.00 Pure hypercholesterolemia, unspecified; I10 Essential (primary) hypertension; Z86.74 Personal history of sudden cardiac arrest
CPT/HCPCS: 99283; 73552; 73590; A9270 ×2

== ENCOUNTER 2018-03-22 08:12 | Emergency (ER) | payer OTHER, MEDICARE ==
[2018-03-22] MEDS ORDERED: DEXAMETHASONE 4 MG TABLET PO ONE (09:08)
[2018-03-22] MEDS ORDERED: TRAMADOL HCL 50 MG TABLET PO ONE (09:09)
--- NOTE | 2018-03-22 09:11 | ER Document Report ---
HPI - HPI Patient complains to provider of: Right elbow pain Onset: Other - 2 days Onset/Duration: Persistent Quality of pain: Achy Pain Level: 5 Context: Patient presents complaining of right elbow tenderness for the past 2 days with some swelling. Patient denies any injury. Patient denies any fever. Associated Symptoms: Other - Right elbow pain Exacerbated by: Movement Relieved by: Denies Similar symptoms previously: No Recently seen / treated by doctor: No - ROS ROS below otherwise negative: Yes Systems Reviewed and Negative: Yes All other systems reviewed and negative - CONSTITUTIONAL Constitutional: DENIES: Fever - NEURO Neurology: DENIES: Weakness - MUSCULOSKELETAL Musculoskeletal: REPORTS: Extremity pain, Swelling - DERM Skin Color: Normal Skin Problems: None Past Medical History - General Information source: Patient - Social History Smoking Status: Never Smoker Chew tobacco use (# tins/day): No Frequency of alcohol use: None Drug Abuse: None Lives with: Family Family History: Arthritis, DM, Hyperlipidemia, Hypertension Patient has suicidal ideation: No Patient has homicidal ideation: No - Past Medical History Cardiac Medical History: Reports: Hx Hypercholesterolemia, Hx Hypertension Neurological Medical History: Reports: Hx Cerebrovascular Accident - 2012, Hx Seizures - childhood Renal/ Medical History: Denies: Hx Peritoneal Dialysis Musculoskeletal Medical History: Reports Hx Arthritis, Reports Hx Muscle Weakness - Left Surgical Hx: Negative - Immunizations Hx Diphtheria, Pertussis, Tetanus Vaccination: Yes Vertical Provider Document - CONSTITUTIONAL Agree With Documented VS: Yes Exam Limitations: No Limitations General Appearance: WD/WN, No Apparent Distress - INFECTION CONTROL TRAVEL OUTSIDE OF THE [place] IN LAST 30 DAYS: No - HEENT HEENT: Atraumatic, Normocephalic - NECK Neck: Normal Inspection, Supple - RESPIRATORY Respiratory: Breath Sounds Normal, No Respiratory Distress - MUSCULOSKELETAL/EXTREMETIES Musculoskeletal/Extremeties: MAEW - Moves right upper extremity well, Tender - Right elbow tenderness over olecranon bursa - NEURO Level of Consciousness: Awake, Alert, Appropriate Motor/Sensory: No Motor Deficit - DERM Integumentary: Warm, Dry, No Rash Course - Re-evaluation Re-evalutation: 03/22/18 09:09 Patient has a history of prior CVA with left-sided hemiparesis. Patient compensates by putting weight on his right elbow to help reposition. Patient does acknowledge rubbing his right elbow recently on hard surfaces. Patient able to fully flex and extend elbow. No erythema overlying joint, minimal swelling over olecranon bursa. No concern for septic arthritis at this time. No concern for cellulitis. Consulted with Dr. Knowles regarding patient's management, agrees with plan of care. Patient with a history of hypertension, patient just took his antihypertensive medications just prior to arrival in the ER. - Vital Signs Vital signs: Temp Pulse Resp BP Pulse Ox 98.6 F 78 16 190/58 H 95 03/22/18 08:21 03/22/18 08:21 03/22/18 08:21 03/22/18 08:21 03/22/18 08:21 Procedures - Immobilization Right Elbow Pre-Proc Neuro Vasc Exam: Normal Immobilizer type: Jose wrap Performed by: PCT Post-Proc Neuro Vasc Exam: Normal Alignment checked and good: Yes Discharge - Discharge Clinical Impression: Olecranon bursitis of right elbow Condition: Stable Disposition: HOME, SELF-CARE Instructions: Jose Wrap ([facility]), Olecranon Bursitis ([facility]), Steroid Medication Additional Instructions: Return immediately for any new or worsening symptoms Followup with your primary care provider, call tomorrow to make a followup appointment Avoid putting pressure to right elbow Prescriptions: Diclofenac Sodium [Voltaren] 1 applic TP QID PRN #100 gel..gm. PRN Reason: Tramadol HCl [Ultram 50 mg Tablet] 50 mg PO ASDIR PRN #15 tablet PRN Reason: Referrals: JANY CONTEH MD [Primary Care Provider] - Follow up tomorrow
[2018-03-22 10:02] VITALS: BP 177/110
== END 2018-03-22 10:18 | disposition home or self-care (01) ==
LOC: ER 08:12
DX: M25.521 Pain in right elbow (principal); M70.21 Olecranon bursitis, right elbow; I69.354 Hemiplegia and hemiparesis following cerebral infarction affecting left non-dominant side; I10 Essential (primary) hypertension; Z79.899 Other long term (current) drug therapy
CPT/HCPCS: 99283

== ENCOUNTER 2018-05-29 09:43 | Emergency (ER) | payer OTHER, MEDICARE ==
[2018-05-29 09:54] VITALS: BP 163/81
[2018-05-29] MEDS ORDERED: ACETAMINOPHEN 325 MG TABLET PO ONE (10:23)
[2018-05-29] MEDS ORDERED: IBUPROFEN 600 MG TABLET PO ONE (10:23)
[2018-05-29] MEDS ORDERED: TRAMADOL HCL 50 MG TABLET PO ONE (10:23)
[2018-05-29] MEDS ORDERED: PREDNISONE 20 MG TABLET PO SCH (10:30)
--- NOTE | 2018-05-29 10:35 | ER Document Report ---
ED General - General Chief Complaint: Hip Pain Stated Complaint: HIP PAIN Time Seen by Provider: 05/29/18 10:22 TRAVEL OUTSIDE OF THE [place] IN LAST 30 DAYS: No - HPI Patient complains to provider of: Left hip pain Notes: Patient coming in complaining of left hip pain ongoing for the last 2 years however worse over the last 2 weeks. Patient denies any trauma denies any recent falls denies any fever chills nausea vomiting diarrhea. Patient is seen in a wheelchair states normally walks around with a cane. Patient states pain in left hip radiating down the back of the left leg to his toes. Patient states he is [facility] patient however also has Medicaid does not have a PCP. Patient is requesting pain control and to "fix me". - Related Data Allergies/Adverse Reactions: No Known Allergies Allergy (Verified 05/29/18 09:46) Past Medical History - Social History Smoking Status: Current Every Day Smoker Frequency of alcohol use: None Drug Abuse: None Family History: Arthritis, DM, Hyperlipidemia, Hypertension Patient has suicidal ideation: No Patient has homicidal ideation: No - Past Medical History Cardiac Medical History: Reports: Hx Hypercholesterolemia, Hx Hypertension Neurological Medical History: Reports: Hx Cerebrovascular Accident - 2012, Hx Seizures - childhood Renal/ Medical History: Denies: Hx Peritoneal Dialysis Musculoskeletal Medical History: Reports Hx Arthritis, Reports Hx Muscle Weakness - Left - Immunizations Hx Diphtheria, Pertussis, Tetanus Vaccination: Yes Review of Systems - Review of Systems Constitutional: No symptoms reported EENT: No symptoms reported Cardiovascular: No symptoms reported Respiratory: No symptoms reported Gastrointestinal: No symptoms reported Genitourinary: No symptoms reported Male Genitourinary: No symptoms reported Musculoskeletal: Other - Left hip pain Skin: No symptoms reported Hematologic/Lymphatic: No symptoms reported Neurological/Psychological: No symptoms reported Physical Exam - Vital signs Vitals: Temp Pulse Resp BP Pulse Ox 99.5 F 100 20 163/81 H 100 05/29/18 09:52 05/29/18 09:52 05/29/18 09:52 05/29/18 09:52 05/29/18 09:52 Interpretation: Normal - General General appearance: Appears well, Alert - HEENT Head: Normocephalic, Atraumatic Eyes: Normal Pupils: PERRL - Respiratory Respiratory status: No respiratory distress Chest status: Nontender Breath sounds: Normal Chest palpation: Normal - Cardiovascular Rhythm: Regular Heart sounds: Normal auscultation Murmur: No - Abdominal Inspection: Normal Distension: No distension Bowel sounds: Normal Tenderness: Nontender Organomegaly: No organomegaly - Back Back: Normal, Nontender - Extremities General upper extremity: Normal inspection, Nontender, Normal color, Normal ROM , Normal temperature General lower extremity: Normal inspection, Nontender - No tenderness is elicited upon palpation bilateral hips upper thighs bilateral knees. There is no guarding or painful response to palpation palpation of the patient's buttocks also reveals no guarding however patient states upon the area on the left side palpate around the piriformis patient states pain reproducible down the leg. Patient is able to lift himself up in his wheelchair so that I can push on his buttocks with his lower extremities, Normal color, Normal ROM, Normal temperature. No: Randi's sign - Neurological Neuro grossly intact: Yes Cognition: Normal Orientation: AAOx4 [place] Coma Scale Eye Opening: Spontaneous [place] Coma Scale Verbal: Oriented [place] Coma Scale Motor: Obeys Commands [place] Coma Scale Total: 15 Speech: Normal Motor strength normal: LUE, RUE, LLE, RLE Sensory: Normal Knee - Reflex grade: 2 = Normal - Psychological Associated symptoms: Normal affect, Normal mood - Skin Skin Temperature: Warm Skin Moisture: Dry Skin Color: Normal Course - Re-evaluation Re-evalutation: 05/29/18 10:33 Long discussion with the patient that at this time he has a chronic condition and that his physical examination is consistent with sciatica did offer x-rays however explained to the patient more likely this will only show diffuse arthritic changes that the patient has no trauma and pain is been ongoing for the last 2 weeks and not concerning at this time for any signs of fracture. Patient states he does want to feel better with the pain to go away. Explained to the patient that he will need to be established with a primary care physician so that he can follow-up more likely he will need to undergo physical therapy again along with some other further imaging modalities. Patient states understanding. Patient will be treated with Tylenol Motrin prednisone and oral narcotics. We will try to contact our social media marketing specialist for at least the patient's information to our social media marketing specialist client relations representative to help the patient follow-up with your primary care physician. - Vital Signs Vital signs: Temp Pulse Resp BP Pulse Ox 99.5 F 100 20 163/81 H 100 05/29/18 09:52 05/29/18 09:52 05/29/18 09:52 05/29/18 09:52 05/29/18 09:52 Discharge - Discharge Clinical Impression: Exacerbation of chronic left hip pain Sciatica Qualifiers: Laterality: left Qualified Code(s): M54.32 - Sciatica, left side Condition: Good Disposition: HOME, SELF-CARE Instructions: Arthralgia ([facility]), Family Physicians / Practices, Ice Packs ([facility]) , Oral Narcotic Medication ([facility]), Sciatica ([facility]), Warm Packs ([facility]) Additional Instructions: Your physical evaluation today is consistent with sciatica. It is very important that you follow-up with a primary care physician for your chronic hip pain. I recommend establishing yourself with 1 of the primary care physicians listed. I will give your information to 1 of our social workers that they can follow-up with you to assist you in following up with your primary care physician. Take medications as prescribed. Return to ER symptoms worsen. Prescriptions: Ibuprofen [Motrin 600 mg Tablet] 600 mg PO Q8HP PRN #21 tablet PRN Reason: Prednisone [Deltasone 20 mg Tablet] 3 tab PO DAILY 4 Days tablet Tramadol HCl [Ultram 50 mg Tablet] 50 mg PO ASDIR PRN #30 tablet PRN Reason: Referrals: JANY CONTEH MD [Primary Care Provider] - Follow up as needed
== END 2018-05-29 11:00 | disposition home or self-care (01) ==
LOC: ER 09:43
DX: M25.552 Pain in left hip (principal); G89.29 Other chronic pain; M79.605 Pain in left leg; F17.200 Nicotine dependence, unspecified, uncomplicated; I10 Essential (primary) hypertension
CPT/HCPCS: 99283; J7512

== ENCOUNTER 2018-08-20 10:02 | Emergency (ER) | payer OTHER, MEDICARE ==
[2018-08-20] MEDS ORDERED: COLCHICINE 0.6 MG TABLET PO ONE ×2 (10:30→11:43)
[2018-08-20] MEDS ORDERED: KETOROLAC TROMETHAMINE INJ/PF 30 MG/1 ML SDV IM ONE (10:31)
--- NOTE | 2018-08-20 10:32 | ER Document Report ---
HPI - HPI Patient complains to provider of: Left knee pain Time Seen by Provider: 08/20/18 10:18 Onset/Duration: Persistent Quality of pain: Achy Pain Level: 5 Context: Patient presents complaining of left knee pain for the past 2 weeks. Patient complains of pain to the anterior aspect of the joint. Patient denies any injury. Patient states pain was worse today which prompted his visit. Patient denies any known history of gout. Associated Symptoms: Other - Left knee pain. denies: Fever Exacerbated by: Movement Relieved by: Denies Similar symptoms previously: No Recently seen / treated by doctor: Yes - ROS ROS below otherwise negative: Yes Systems Reviewed and Negative: Yes All other systems reviewed and negative - CONSTITUTIONAL Constitutional: DENIES: Fever - NEURO Neurology: DENIES: Weakness - MUSCULOSKELETAL Musculoskeletal: REPORTS: Extremity pain - L knee. DENIES: Swelling - DERM Skin Color: Erythema Skin Problems: None Past Medical History - General Information source: Patient - Social History Smoking Status: Current Every Day Smoker Chew tobacco use (# tins/day): No Smoking Education Provided: Yes Frequency of alcohol use: None Drug Abuse: None Lives with: Spouse/Significant other Family History: Arthritis, DM, Hyperlipidemia, Hypertension Patient has suicidal ideation: No Patient has homicidal ideation: No - Past Medical History Cardiac Medical History: Reports: Hx Hypercholesterolemia, Hx Hypertension Neurological Medical History: Reports: Hx Cerebrovascular Accident - 2012, Hx Seizures - childhood Renal/ Medical History: Denies: Hx Peritoneal Dialysis Musculoskeletal Medical History: Reports Hx Arthritis, Reports Hx Muscle Weakness - Left Surgical Hx: Negative - Immunizations Hx Diphtheria, Pertussis, Tetanus Vaccination: Yes Vertical Provider Document - CONSTITUTIONAL Agree With Documented VS: Yes Exam Limitations: No Limitations General Appearance: WD/WN, No Apparent Distress - INFECTION CONTROL TRAVEL OUTSIDE OF THE [place] IN LAST 30 DAYS: No - HEENT HEENT: Atraumatic, Normocephalic - NECK Neck: Normal Inspection, Supple - RESPIRATORY Respiratory: Breath Sounds Normal, No Respiratory Distress - CARDIOVASCULAR Cardiovascular: Regular Rate, Regular Rhythm Pulses: Normal: Posterior tibial - BACK Back: Normal Inspection - MUSCULOSKELETAL/EXTREMETIES Musculoskeletal/Extremeties: MAEW, FROM, Tender - Tenderness to superficial area overlying patella, mild erythema. No joint effusion. Tenderness with palpation of the joint. - NEURO Level of Consciousness: Awake, Alert, Appropriate Motor/Sensory: No Motor Deficit - DERM Integumentary: Warm, Dry Course - Re-evaluation Re-evalutation: 08/20/18 10:32 Dr. Knowles to bedside for examination. Recommends obtaining x-ray, agrees with plan to administer colchicine at this time. Suspects likely inflammatory process, possibly gout. 08/20/18 11:44 X-ray reviewed, no obvious fracture or acute findings. We will treat symptomatically at this time and encourage orthopedic follow-up. 08/20/18 11:44 Patient does report market pain improvement after medications that have been given while here in the ER - Vital Signs Vital signs: Temp Pulse Resp BP Pulse Ox 98.8 F 93 20 117/75 98 08/20/18 10:06 08/20/18 10:06 08/20/18 10:06 08/20/18 10:06 08/20/18 10:06 - Diagnostic Test Radiology reviewed: Pending, Image reviewed Discharge - Discharge Clinical Impression: Arthritis Left knee pain Qualifiers: Chronicity: acute Qualified Code(s): M25.562 - Pain in left knee Gout Qualifiers: Gout site: knee Gout etiology: unspecified cause Chronicity: acute Laterality: left Qualified Code(s): M10.9 - Gout, unspecified Condition: Stable Disposition: HOME, SELF-CARE Instructions: Antihistamines ([facility]), Gout ([facility]), Gout Diet ([facility]) Additional Instructions: Return immediately for any new or worsening symptoms Followup with your primary care provider, call tomorrow to make a followup appointment Follow-up with orthopedics for further evaluation, call for follow-up. Prescriptions: Indomethacin [Indocin 25 Mg Capsule] 25 mg PO TID PRN #12 capsule PRN Reason: Forms: Smoking Cessation Education Referrals: JANY CONTEH MD [Primary Care Provider] - Follow up as needed [facility] [Provider Group] - Follow up as needed
--- NOTE | 2018-08-20 11:44 | RADIOLOGY REPORT (SQ) ---
EXAM DESCRIPTION: KNEE LEFT 4 VIEW COMPLETED DATE/TIME: 08/20/2018 11:03 am REASON FOR STUDY: left knee pain COMPARISON: 03/02/2017 NUMBER OF VIEWS: Four views. TECHNIQUE: AP, lateral, and both oblique radiographic images acquired of the left knee. LIMITATIONS: None. FINDINGS: MINERALIZATION: Normal. BONES: No acute findings. Old fracture proximal fibula. JOINT: No effusion. SOFT TISSUES: No soft tissue swelling. No radio-opaque foreign body. OTHER: No other significant finding. IMPRESSION: NO RADIOGRAPHIC EVIDENCE OF ACUTE INJURY. TECHNICAL DOCUMENTATION: JOB ID: [id number] [employer]- All Rights Reserved Reading location - IP/workstation name: [email or web address]
[2018-08-20 11:59] VITALS: BP 120/76
== END 2018-08-20 11:57 | disposition home or self-care (01) ==
LOC: ER 10:02
DX: M10.9 Gout, unspecified (principal); M19.90 Unspecified osteoarthritis, unspecified site; M25.562 Pain in left knee; I10 Essential (primary) hypertension; F17.200 Nicotine dependence, unspecified, uncomplicated
CPT/HCPCS: 99283; 96372; 73564; J1885

== ENCOUNTER → 2018-09-25 | Outpatient (CLI) | payer MEDICARE ==
--- NOTE | 2018-09-26 07:52 | XCELERA REPORT ---
[address] [address] Lower Extremity Arterial Evaluation Name: SHYAM CAMPOS Age: 63 yrs Gender: Male : 1955 Patient Status: Outpatient Patient Location: [facility] Study Date: 09/25/2018 12:52 PM Procedure: A color flow and duplex scan of the lower extremity arteries was performed bilaterally with velocity and waveform anaylsis. Reason For Study: CLADICATION Ordering Physician: SANDRA KHAN Performed By: Daniela Foreman Measurements and Calculations Right Left AUTOMATIC BLOCKER PSV 163.3 70.3 cm/sec Prox PFA PSV -167.9 -28.9 cm/sec Prox SFA PSV -93.7 62.9 cm/sec Mid SFA PSV -100.6 40.9 cm/sec Dist SFA PSV -121.9 -46.5 cm/sec Prox Pop A PSV -53.3 cm/sec Dist Pop A PSV -32.1 cm/sec Mid MARGARITO PSV 14.9 cm/sec Dist MARGARITO PSV 12.2 cm/sec Mid BARREL DRAINER PSV 36.0 17.9 cm/sec Candido Pedis PSV 20.2 17.7 cm/sec Right Side Arterial Evaluation Normal velocity and triphasic waveforms noted in the Common Femoral artery. Biphasic with low normal to low velocity from Popliteal to the infrageniculate vessels . Ankle Brachial index not obtained . Left Side Arterial Evaluation Normal velocity and triphasic waveforms noted in the Common Femoral artery. Biphasic with low normal velocity in the Deep Femoral. Monophasic with low velocity from Popliteal to the infrageniculate vessels . Ankle Brachial index not obtained . Critical Findings Discussed with Dr Khan. Interpretation Summary Moderate hemodynamically significant lesions in the right lower extremity only, on duplex imaging, at rest. Severe hemodynamically significant lesions in the left lower extremity only, on duplex imaging, at rest. Significant disease at about the Femoral level , bilaterally, much more severe on the left. : SANDRA KHAN > Pasquale Forrest
== END ==
LOC: SP 12:36
PROVIDERS: ATTEND Family Medicine
DX: I70.212 Atherosclerosis of native arteries of extremities with intermittent claudication, left leg (principal)
CPT/HCPCS: 93925

== ENCOUNTER 2018-10-12 11:58 | Emergency (ER) | payer MEDICARE ==
--- NOTE | 2018-10-12 12:44 | ER Document Report ---
ED General - General Chief Complaint: Foot Pain Stated Complaint: LEFT ANKLE/FOOT PAIN Time Seen by Provider: 10/12/18 12:38 Primary Care Provider: SANDRA SIFUENTES MD [ACTIVE STAFF] - Follow up in 3-5 days DIGNA BORRERO MD [ACTIVE STAFF] - Follow up as needed TRAVEL OUTSIDE OF THE [place] IN LAST 30 DAYS: No - HPI Patient complains to provider of: Left foot pain Notes: Patient with a history of gout coming in for left foot pain. Patient states started on Sunday had increased swelling to the dorsum of the foot. Patient states pain with ambulation and movement of the foot. Patient denies any numbness or tingling denies any trauma. Patient denies fevers chills nausea vomiting otherwise resting comfortably upon my evaluation. - Related Data Allergies/Adverse Reactions: No Known Allergies Allergy (Verified 10/12/18 11:59) Past Medical History - Social History Smoking Status: Unknown if Ever Smoked Family History: Arthritis, DM, Hyperlipidemia, Hypertension - Past Medical History Cardiac Medical History: Reports: Hx Hypercholesterolemia, Hx Hypertension Neurological Medical History: Reports: Hx Cerebrovascular Accident - 2011, Hx Seizures - childhood Renal/ Medical History: Denies: Hx Peritoneal Dialysis Musculoskeletal Medical History: Reports Hx Arthritis, Reports Hx Muscle Weaknes s - Left - Immunizations Hx Diphtheria, Pertussis, Tetanus Vaccination: Yes Review of Systems - Review of Systems Constitutional: No symptoms reported EENT: No symptoms reported Cardiovascular: No symptoms reported Respiratory: No symptoms reported Gastrointestinal: No symptoms reported Genitourinary: No symptoms reported Male Genitourinary: No symptoms reported Musculoskeletal: Other - Foot pain Skin: No symptoms reported Hematologic/Lymphatic: No symptoms reported Neurological/Psychological: No symptoms reported Physical Exam - Vital signs Vitals: Temp Pulse Resp BP Pulse Ox 98.4 F 82 20 132/79 H 100 10/12/18 12:03 10/12/18 12:03 10/12/18 12:03 10/12/18 12:03 10/12/18 12:03 Interpretation: Normal - General General appearance: Appears well, Alert - HEENT Head: Normocephalic, Atraumatic Eyes: Normal Pupils: PERRL - Respiratory Respiratory status: No respiratory distress Chest status: Nontender Breath sounds: Normal Chest palpation: Normal - Cardiovascular Rhythm: Regular Heart sounds: Normal auscultation Murmur: No - Abdominal Inspection: Normal Distension: No distension Bowel sounds: Normal Tenderness: Nontender Organomegaly: No organomegaly - Back Back: Normal, Nontender - Extremities General upper extremity: Normal inspection, Nontender, Normal color, Normal ROM, Normal temperature General lower extremity: Normal color, Normal ROM, Normal temperature, Normal weight bearing, Other - Right foot unaffected patient has swelling to the dorsum of the left foot exactly in the midfoot bilaterally or the cuboid bone area. There is no tenderness to palpation of the plantar surfaces range of motion of the toes is intact. Range of motion of the ankle is intact Refill is intact distally.. No: Randi's sign - Neurological Neuro grossly intact: Yes Cognition: Normal Orientation: AAOx4 [place] Coma Scale Eye Opening: Spontaneous B[place] Coma Scale Verbal: Oriented [place] Coma Scale Motor: Obeys Commands [place] Coma Scale Total: 15 Speech: Normal Motor strength normal: LUE, RUE, LLE, RLE Sensory: Normal - Psychological Associated symptoms: Normal affect, Normal mood - Skin Skin Temperature: Warm Skin Moisture: Dry Skin Color: Normal Course - Re-evaluation Re-evalutation: 10/12/18 13:46 X-ray shows possible stress fracture. Patient was placed in a postop shoe pain medication was given to the patient. Patient was also given gout diet instructions per his history of gout otherwise at this time for is not warm early consistent with a gout flare did recommend patient follow-up with orthopedics as primary care physician. - Vital Signs Vital signs: Temp Pulse Resp BP Pulse Ox 98.4 F 82 20 132/79 H 100 10/12/18 12:03 10/12/18 12:03 10/12/18 12:03 10/12/18 12:03 10/12/18 12:03 Discharge - Discharge Clinical Impression: Gout of foot Qualifiers: Gout etiology: unspecified cause Chronicity: acute Laterality: left Qualified Code(s): M10.9 - Gout, unspecified Condition: Good Disposition: HOME, SELF-CARE Instructions: Fracture ([facility]), Gout ([facility]), Gout Diet ([facility]), Oral Narcotic Medication ([facility]), Post-Op Shoe ([facility]) Additional Instructions: Your x-ray shows the beginning of a possible stress fracture. We will place you in a postop shoe I would highly recommend she follow-up with the orthopedic doctor provided. Return to ER symptoms worsen. I would highly recommend following the dietary recommendations for the gout diet as that she may have underlying component of gout causing the foot pain. Prescriptions: Ibuprofen [Motrin 600 mg Tablet] 600 mg PO Q8HP PRN #21 tablet PRN Reason: Tramadol HCl [Ultram 50 mg Tablet] 50 mg PO ASDIR PRN #20 tablet PRN Reason: Referrals: SANDRA SIFUENTES MD [ACTIVE STAFF] - Follow up in 3-5 days DIGNA BORRERO MD [ACTIVE STAFF] - Follow up as needed
--- NOTE | 2018-10-12 13:20 | RADIOLOGY REPORT (SQ) ---
EXAM DESCRIPTION: FOOT LEFT COMPLETE COMPLETED DATE/TIME: 10/12/2018 12:52 pm REASON FOR STUDY: pain mid foot . Twisted foot on Sunday. COMPARISON: Left foot x-ray 04/01/2012. NUMBER OF VIEWS: Three views. TECHNIQUE: AP, lateral and oblique radiographic images acquired of the left foot. LIMITATIONS: None. FINDINGS: MINERALIZATION: Normal. BONES: There is a linear sclerosis at the cuboid, suggestive of a stress fracture. Redemonstration o f the 2 mm cortical density superior to the anterior aspect of the talus, may be secondary to prior t rauma. SOFT TISSUES: No soft tissue swelling. No radiopaque foreign body. IMPRESSION: Linear sclerosis at the cuboid, suggestive of a stress fracture. TECHNICAL DOCUMENTATION: JOB ID: [id number] OH-64 2010 [employer]- All Rights Reserved Reading location - IP/workstation name: [email or web address]
[2018-10-12 14:12] VITALS: BP 139/84
== END 2018-10-12 14:10 | disposition home or self-care (01) ==
LOC: ER 11:58
DX: M10.9 Gout, unspecified (principal); M79.672 Pain in left foot; I10 Essential (primary) hypertension
CPT/HCPCS: 99283

== ENCOUNTER → 2019-10-27 | Outpatient (CLI) | payer OTHER ==
--- NOTE | 2019-10-27 14:28 | RADIOLOGY REPORT (SQ) ---
EXAM DESCRIPTION: CT CHEST WITHOUT COMPLETED DATE/TIME: 10/27/2019 1:56 pm REASON FOR STUDY: (Z72.0)TOBACCO USE; (R05)COUGH Z72.0 TOBACCO USE R05 COUGH COMPARISON: None. TECHNIQUE: CT scan performed of the chest without intravenous contrast. Images reviewed with lung, soft tissue and bone windows. Reconstructed coronal and sagittal MPR images reviewed. All images st ored on PACS. All CT scanners at this facility use dose modulation, iterative reconstruction, and/or weight based d osing when appropriate to reduce radiation dose to as low as reasonably achievable (ALARA). [facility]: Dose Right [facility]: CareDose [facility]: Dose Right [facility]: Teradose 4D [facility]: Onefeat RADIATION DOSE: CT Rad equipment meets quality standard of care and radiation dose reduction techniq ues were employed. CTDIvol: 15.6 mGy. DLP: 616 mGy-cm. mGy. LIMITATIONS: Positioning. Motion artifact. FINDINGS: LUNGS AND PLEURA: Mild paraseptal emphysema upper lobes. No masses, infiltrates, or pneum othorax. No pleural effusions or pleural calcifications. HILAR AND MEDIASTINAL STRUCTURES: No identified masses or abnormal nodes. No obvious aneurysm. HEART AND VASCULAR STRUCTURES: No aneurysm. No pericardial effusion. UPPER ABDOMEN: No significant findings. Limited exam. THYROID AND OTHER SOFT TISSUES: No masses. No adenopathy. BONES: No significant finding. HARDWARE: None in the chest. OTHER: No other significant findings. IMPRESSION: NO SIGNIFICANT FINDING ON NON-CONTRASTED CHEST CT. TECHNICAL DOCUMENTATION: JOB ID: [id number] Quality ID # [id number]: Final reports with documentation of one or more dose reduction techniques (e.g., Au tomated exposure control, adjustment of the mA and/or kV according to patient size, use of iterative reconstruction technique) 2010 [employer]- All Rights Reserved Reading location - IP/workstation name: [email or web address]
== END ==
LOC: RAD 13:33
PROVIDERS: ATTEND Internal Medicine Hematology & Oncology
DX: Z72.0 Tobacco use (principal); R05 Cough
CPT/HCPCS: 71250

== ENCOUNTER → 2019-11-21 | Outpatient (CLI) | payer OTHER ==
--- NOTE | 2019-11-21 11:54 | RADIOLOGY REPORT (SQ) ---
EXAM DESCRIPTION: CT ABD/PELVIS WITH IV ORAL IMAGES COMPLETED DATE/TIME: 11/21/2019 10:22 am REASON FOR STUDY: R63.4 ABNORMAL WEIGHT LOSS, Z72.0 TOBACCO USE, D64.9 ANEMIA, UNSPECIFIED R63.4 AB NORMAL WEIGHT LOSS Z72.0 TOBACCO USE D64.9 ANEMIA, UNSPECIFIED COMPARISON: None. TECHNIQUE: CT scan of the abdomen and pelvis performed using helical scanning technique with dynamic intravenous contrast injection. No oral contrast. Images reviewed with lung, soft tissue, and bone windows. Reconstructed coronal and sagittal MPR images reviewed. Delayed images for evaluation of the urinary system also acquired. All images stored on PACS. All CT scanners at this facility use dose modulation, iterative reconstruction, and/or weight based d osing when appropriate to reduce radiation dose to as low as reasonably achievable (ALARA). [facility]: Dose Right [facility]: CareDose [facility]: Dose Right [facility]: Teradose 4D [facility]: [employer] CONTRAST TYPE AND DOSE: Contrast/concentration: Isovue 350.00 mg/ml; Total Contrast Delivered: 79.0 ml; Total Saline Delivered: 68.0 ml RENAL FUNCTION: Creatinine 1.2 milligrams/deciliter. RADIATION DOSE: CT Rad equipment meets quality standard of care and radiation dose reduction techniq ues were employed. CTDIvol: 8.2 - 8.4 mGy. DLP: 851 mGy-cm.. LIMITATIONS: None. FINDINGS: LOWER CHEST: The left ventricle is enlarged. There is atherosclerotic calcification of th e coronary arteries. The nodularity lateral and posterior to the esophagus is unchanged compared to the CT from 10/27/2019. There is no acute consolidation or pleural effusion. LIVER: The morphology of the liver is noncirrhotic. The portal veins are patent. There is no hepati c mass. SPLEEN: No splenomegaly or splenic mass. PANCREAS: No acute abnormality of the pancreas. GALLBLADDER: No abnormality that is apparent on CT. ADRENAL GLANDS: No mass or asymmetry. RIGHT KIDNEY AND URETER: The cortical based hypodense lesion in the upper pole of the kidney measures less than 1 cm and therefore is too small to characterize. There is no solid mass, hydronephrosis, nephrolithiasis, hydroureter or ureterolithiasis. LEFT KIDNEY AND URETER: There are several cortical based, hypodense lesions that measure up to 2.6 x 1.8 cm consistent with cyst. There is no solid mass, hydronephrosis, nephrolithiasis, hydroureter or ureterolithiasis. AORTA AND VESSELS: Patent fem-to-fem bypass graft. The abdominal aorta is nonaneurysmal. RETROPERITONEUM: No retroperitoneal adenopathy, hemorrhage or mass. BOWEL AND PERITONEAL CAVITY: No bowel obstruction, bowel wall thickening or pericolonic/ perienteric inflammation. No mesenteric adenopathy, free intraperitoneal fluid or mesenteric/ omental inflammati on. APPENDIX: Normal. PELVIS: The prostate gland is enlarged. The wall of the urinary bladder is thickened. There is no p elvic mass. ABDOMINAL WALL: No mass or hernia BONES: Grade 1 anterolisthesis of L4 relative to L5. OTHER: No other finding. IMPRESSION: 1. No acute intra-abdominal abnormality. 2. Thickening of the wall of the urinary bladder. In the setting of the cardiomegaly the finding co uld be secondary to chronic bladder outlet obstruction, however correlation with urinalysis is recomm ended to exclude an acute cystitis. TECHNICAL DOCUMENTATION: JOB ID: [id number] Quality ID # [id number]: Final reports with documentation of one or more dose reduction techniques (e.g., Au tomated exposure control, adjustment of the mA and/or kV according to patient size, use of iterative reconstruction technique) 2010 [employer]- All Rights Reserved Reading location - IP/workstation name: [email or web address]
== END ==
LOC: RAD 09:38
PROVIDERS: ATTEND Internal Medicine Hematology & Oncology
DX: R63.4 Abnormal weight loss (principal); D50.9 Iron deficiency anemia, unspecified; F17.200 Nicotine dependence, unspecified, uncomplicated; I51.7 Cardiomegaly
CPT/HCPCS: 74177